=== PATIENT | male | born 1995 | race Caucasian/White ===

== ENCOUNTER 2022-05-05 07:27 | Emergency (ER) | payer MEDICAID ==
[~2022-05-05] VITALS: Ht 185.4 cm; Wt 134.0 kg
[~2022-05-05 07:27] MED LIST: IBUP-1984 PO
[2022-05-05 07:53] VITALS: BP 153/77
== END 2022-05-05 18:43 | disposition left against medical advice (07) ==
LOC: ER 07:28
DX: K08.89 Other specified disorders of teeth and supporting structures (principal); Z53.21 Procedure and treatment not carried out due to patient leaving prior to being seen by health care provider

== ENCOUNTER 2022-12-28 13:39 | Emergency (ER) | payer MEDICAID ==
[~2022-12-28] VITALS: Ht 185.4 cm; Wt 127.3 kg
[2022-12-28 13:45] VITALS: BP 137/102
[2022-12-28] MEDS ORDERED: AMOX-580 PO (14:09)
[2022-12-28] MEDS ORDERED: amox tr/potassium clavulanate 875/125mg TAB PO ONE (14:10)
== END 2022-12-28 14:20 | disposition home or self-care (01) ==
LOC: ER 13:40
DX: K04.7 Periapical abscess without sinus (principal); F32.A Depression, unspecified; F12.10 Cannabis abuse, uncomplicated; Z79.899 Other long term (current) drug therapy
CPT/HCPCS: 99283

== ENCOUNTER 2023-01-26 11:13 | Emergency (ER) | payer MEDICAID ==
[~2023-01-26] VITALS: Ht 185.4 cm; Wt 127.3 kg
[2023-01-26 11:19] VITALS: BP 139/88
--- NOTE | 2023-01-26 12:28 | NUR ---
post op shoe given
== END 2023-01-26 12:46 | disposition home or self-care (01) ==
LOC: ER 11:14
DX: S96.911A Strain of unspecified muscle and tendon at ankle and foot level, right foot, initial encounter (principal); F12.90 Cannabis use, unspecified, uncomplicated; Z72.89 Other problems related to lifestyle; Z79.899 Other long term (current) drug therapy; W22.8XXA Striking against or struck by other objects, initial encounter; Y93.89 Activity, other specified; Y92.89 Other specified places as the place of occurrence of the external cause; Y99.8 Other external cause status
CPT/HCPCS: 73630; 99283; L3260

== ENCOUNTER 2023-02-01 19:18 | Emergency (ER) | payer MEDICAID ==
[~2023-02-01] VITALS: Ht 185.4 cm; Wt 127.6 kg
[2023-02-01 19:24] VITALS: BP 158/92
[2023-02-01] MEDS ORDERED: ibuprofen tablet 400 MG TABLET PO ONE (20:55)
[2023-02-01] MEDS ORDERED: acetaminophen 325mg tablet PO ONE (20:55)
[2023-02-01] MEDS ORDERED: AMOX-117 PO (21:29)
[2023-02-01] MEDS ORDERED: IBUP-1984 PO (21:29)
[2023-02-01] MEDS ORDERED: amox tr/potassium clavulanate 875/125mg TAB PO ONE (21:30)
== END 2023-02-01 22:01 | disposition home or self-care (01) ==
LOC: ER 19:19
DX: K04.7 Periapical abscess without sinus (principal); F17.200 Nicotine dependence, unspecified, uncomplicated; F12.10 Cannabis abuse, uncomplicated; F32.A Depression, unspecified; Z79.899 Other long term (current) drug therapy
CPT/HCPCS: 99284

== ENCOUNTER 2023-02-21 12:38 | Emergency (ER) | payer MEDICAID ==
[~2023-02-21] VITALS: Ht 185.4 cm; Wt 127.3 kg
[2023-02-21] MEDS ORDERED: ketorolac trometh inj. 60 MG/2 ML VIAL IM ONE (14:15)
[2023-02-21] MEDS ORDERED: IBUP-1986 PO (14:41)
[2023-02-21 14:45] VITALS: BP 132/78
== END 2023-02-21 14:47 | disposition home or self-care (01) ==
LOC: ER 12:39
DX: M25.531 Pain in right wrist (principal); F32.9 Major depressive disorder, single episode, unspecified; F12.90 Cannabis use, unspecified, uncomplicated; F10.10 Alcohol abuse, uncomplicated; Z56.0 Unemployment, unspecified; Z79.899 Other long term (current) drug therapy; Y90.9 Presence of alcohol in blood, level not specified; W10.8XXA Fall (on) (from) other stairs and steps, initial encounter; Y93.89 Activity, other specified; Y92.89 Other specified places as the place of occurrence of the external cause; Y99.8 Other external cause status
CPT/HCPCS: 29515; 73090; 73110; 96372; 99284; J1885

== ENCOUNTER 2023-04-22 06:36 | Emergency (ER) | payer MEDICAID ==
[~2023-04-22] VITALS: Ht 185.4 cm; Wt 114.0 kg
[~2023-04-22 06:36] MED LIST changes: +IBUP-1986 PO
[2023-04-22 06:50] VITALS: BP 148/96; PULSE 90; RESP 16; TEMP 98.5; O2SAT 97
[2023-04-22 07:21] LABS: BILIRUBIN,URINE NEGATIVE (Neg); CLARITY,URINE CLEAR (Clear); COLOR,URINE YELLOW (Yellow); GLUCOSE, URINE NEGATIVE (Neg); KETONES,URINE NEGATIVE (Neg); LEUKOCYTE ESTERASE ,URINE NEGATIVE (Neg); NITRITES, URINE NEGATIVE (Neg); OCCULT BLOOD,URINE NEGATIVE (Neg); PH,URINE 5.5 (4.8-8.0); PROTEIN,URINE NEGATIVE (Neg); UROBILINOGEN,URINE 0.2 E.U/dL (0.2-1.0)
[2023-04-22 07:26] LABS: UA COLLECTION TYPE CLN CATCH MIDSTREAM
--- NOTE | 2023-04-22 08:36 | NUR ---
PT CALLED TO ROOM. STATES HE FEELS BETTER AND HAS DECIDED TO GO HOME
== END 2023-04-22 09:19 | disposition left against medical advice (07) ==
LOC: ER 06:37
DX: R07.89 Other chest pain (principal); Z53.21 Procedure and treatment not carried out due to patient leaving prior to being seen by health care provider
CPT/HCPCS: 81003; 93005; 99281

== ENCOUNTER 2023-07-23 23:17 | Emergency (ER) | payer MEDICAID ==
[~2023-07-23] VITALS: Ht 185.4 cm; Wt 130.1 kg
[2023-07-23 23:22] VITALS: BP 142/100; PULSE 56; RESP 16; TEMP 97.9; O2SAT 98
== END 2023-07-24 01:33 | disposition home or self-care (01) ==
LOC: ER 23:17
DX: K29.70 Gastritis, unspecified, without bleeding (principal); F12.90 Cannabis use, unspecified, uncomplicated; Z79.1 Long term (current) use of non-steroidal anti-inflammatories (NSAID)
CPT/HCPCS: 99282

== ENCOUNTER 2023-10-19 00:42 | Emergency (ER) | payer MEDICAID ==
[~2023-10-19] VITALS: Ht 185.4 cm; Wt 118.0 kg
[2023-10-19] MEDS: ketorolac trometh inj. 60 MG/2 ML VIAL IM ONE (01:41)
[2023-10-19] MEDS: acetaminophen 325mg tablet PO ONE (01:41)
[2023-10-19 02:33] VITALS: BP 133/85; PULSE 65; RESP 14; TEMP 97.9; O2SAT 98
== END 2023-10-19 02:34 | disposition home or self-care (01) ==
LOC: ER 00:43
DX: R10.11 Right upper quadrant pain (principal); F32.A Depression, unspecified; F12.10 Cannabis abuse, uncomplicated; Z79.899 Other long term (current) drug therapy
CPT/HCPCS: 96372; 99283; J1885

== ENCOUNTER 2023-10-22 11:14 | Emergency (ER) | payer MEDICAID ==
[~2023-10-22] VITALS: Ht 185.4 cm; Wt 127.3 kg
[2023-10-22 11:23] VITALS: BP 128/84; PULSE 97; RESP 18; TEMP 97.8; O2SAT 98
[2023-10-22] MEDS ORDERED: CLIN300C54 PO (12:56)
[2023-10-22] MEDS ORDERED: IBUP-1985 PO (12:56)
== END 2023-10-22 14:09 | disposition home or self-care (01) ==
LOC: ER 11:14
DX: K08.89 Other specified disorders of teeth and supporting structures (principal); R68.84 Jaw pain; F32.A Depression, unspecified; F12.10 Cannabis abuse, uncomplicated; Z59.00 Homelessness unspecified; Z79.899 Other long term (current) drug therapy
CPT/HCPCS: 99283

== ENCOUNTER 2024-11-05 18:00 | Emergency (ER) | payer MEDICAID, OTHER ==
[~2024-11-05] VITALS: Ht 185.4 cm; Wt 124.1 kg
[~2024-11-05 18:00] MED LIST changes: +IBUP-1985 PO
[2024-11-05 18:05] VITALS: BP 142/72; PULSE 74; RESP 16; O2SAT 99
[2024-11-05 19:28] VITALS: TEMP 98
== END 2024-11-05 19:30 | disposition home or self-care (01) ==
LOC: ER 18:01
DX: M25.532 Pain in left wrist (principal); F32.A Depression, unspecified; F12.90 Cannabis use, unspecified, uncomplicated; F10.10 Alcohol abuse, uncomplicated; Y90.9 Presence of alcohol in blood, level not specified
CPT/HCPCS: 29125; 73110; 99283